=== PATIENT | female | born 1985 | race Hispanic/Latino ===

== ENCOUNTER 2019-01-22 06:27 | Emergency (ER) | payer OTHER ==
[2019-01-22 07:38] VITALS: BMI 24.8
[2019-01-22] MEDS ORDERED: Lactated Ringer's 1,000 ML IV ONE (07:39)
--- NOTE | 2019-01-22 08:28 | OBHP ---
Datetime: 01/22/2019 07:15 IP Adm Impression: , intrauterine ; No Active Labor; Intact Membranes IP Admit Plan: Observation/Evaluation Admit Comment, IP Provider: PNP: [facility] -No records with her 33 y/o @ 36.1 wks c/o decreased FM since yesterday morning. She reports last feeling the baby move at 10am. Since then she has not felt any movement although drinking cold water to stimulate mov ement. She also reports short episode of nausea which has resolved. She denies ctx, vb, lof, f/c/diar eladia/cp or sob. OBGYNhx: denies PMH: denies Allergies: amoxicillin/penicillin- throat swelling Meds: PNV Surghx: denies Famhx: denies Sochx: denies ROS: 12 points reviewed and are negative unless otherwise mentioned in HPI PE: gravid female breathing comfortably Cardio: s1s2 RRR Lungs: cta b/l no wheeze Abd: gravid, soft, nontender, no rigidity, no guarding FHR: 150's Pelvic: closed, posterior Ext: calves nontender, nonedematous A/P: 33 y/o @ 36.1 wks, clinically stable, c/o decreased FM since yesterday morning. -Since presentation, patient has felt the baby move. - tracing- reactive, reassuring -Cervical exm: closed, posterior -1 LR bolus given -FU BPP If wnl, discharge home; patient has FU tomorrow with PNP Patient seen and examined with Dr. Harini Escalera, PGY-1 OB Hospitalist note: Pt was seen with PYG1. will give IVF/BPP and re-check ... she has appt tmrw PMD at [facility] Extremities - PN: Normal Abdomen - PN: Normal Lungs - PN: Normal Heart - PN: Normal General - PN: Normal Membranes, Provider: Intact Pool Provider: Negative EGA AdmitDate IP: 36.1 Vital Signs Provider: Reviewed; Within Normal Limits IP Chief Complaint: Decreased movement FHR Category Provider Fetus A: Category I Dilatation, Provider: closed
--- NOTE | 2019-01-22 10:02 | US ---
PROCEDURE: HISTORY: LMP 02/18/2019 COMPARISON: None TECHNIQUE: Transabdominal scanning of the maternal pelvis and a 2nd/ 3rd trimester with image documentation limited exam for biophysical profile FINDINGS: Fetus: Single intrauterine gestation heart rate: Present at 147 beats per minute presentation: Cephalic Placenta: Anteriorwithout previa or abruption Amniotic fluid : Normal appearing: anatomy: Limited due to late gestation. biometrics: Gestational age by LMP 36 weeks 1 day Maternal factors: Uterus: Unremarkable. No myometrial masses Cervix not clearly identified. head obscuring anatomy here. Free fluid: None Biophysical profile: Breathin Gross body movements: 2 Limb tone: 2 Amniotic Fluid: 2 Total biophysical profile: 06/05 IMPRESSION: Single intrauterine gestation with normal cardiac activity. presentation - cephalic. No previa . Biophysical profile 06/05
[2019-01-22 16:13] VITALS: BP 107/72; PULSE 85; RESP 18; TEMP 98; O2SAT 100
== END 2019-01-22 11:30 | disposition home or self-care (01) ==
LOC: H.EROB2 06:27
DX: O36.8131 Decreased fetal movements, third trimester, fetus 1 (principal); O26.93 Pregnancy related conditions, unspecified, third trimester; R11.0 Nausea; Z3A.36 36 weeks gestation of pregnancy
CPT/HCPCS: 76818; 99284; J7120